=== PATIENT | female | born 1965 | race Caucasian/White ===

== ENCOUNTER 2017-10-30 11:00 | Emergency (ER) | payer MEDICAID ==
[~2017-10-30] VITALS: Ht 175.3 cm; Wt 95.0 kg
[2017-10-30 11:06] VITALS: BP 129/89
[2017-10-30] MEDS ORDERED: SERT100T5 PO (11:18)
[2017-10-30] MEDS ORDERED: CLON2TAB16 PO (11:18)
== END 2017-10-30 12:58 | disposition home or self-care (01) ==
LOC: ED 12:30
DX: R56.9 Unspecified convulsions (principal); F13.239 Sedative, hypnotic or anxiolytic dependence with withdrawal, unspecified; F31.9 Bipolar disorder, unspecified; F41.9 Anxiety disorder, unspecified
CPT/HCPCS: 70450; 82962; 93005; 99284

== ENCOUNTER 2018-08-04 08:32 | Emergency (ER) | payer MEDICAID, OTHER ==
[~2018-08-04] VITALS: Ht 172.7 cm; Wt 103.3 kg
[~2018-08-04 08:32] MED LIST: CLON2TAB16 PO; SERT100T5 PO
[2018-08-04] MEDS ORDERED: SODIUM CHLORIDE 0.9% 1,000ML IVBOLUS ONE (09:00)
[2018-08-04] MEDS ORDERED: KETOROLAC 30 MG/1 ML IVPush ONE (09:00)
[2018-08-04] MEDS ORDERED: DEXAMETHASONE 4 MG/ML, 1ML IV ONE (09:00)
[2018-08-04] MEDS ORDERED: SODIUM CHLORIDE FLUSH 10ML SYR IVF ONE (09:00)
[2018-08-04] MEDS ORDERED: KETOROLAC 30 MG/1 ML ONE (09:18)
[2018-08-04] MEDS ORDERED: DEXAMETHASONE 4 MG/ML, 5ML ONE (09:18)
[2018-08-04 09:44] LABS: BASOPHILS # (AUTO) 0.04 x10^3/uL (0-0.1); BASOPHILS % (AUTO) 1 % (0-1); EOSINOPHILS # (AUTO) 0.05 x10^3/uL (0-0.4); EOSINOPHILS % (AUTO) 1 % (1-7); LYMPHOCYTES # (AUTO) 1.97 x10^3/uL (1-3.4); LYMPHOCYTES % (AUTO) 21 % (22-44); MD NO; MEAN CORPUSCULAR HEMOGLOBIN 30.5 pg (27.0-34.8); MEAN CORPUSCULAR HGB CONC 34.2 g/dL (32.4-35.8); MEAN CORPUSCULAR VOLUME 89.1 fL (80-100); MEAN PLATELET VOLUME 8.1 fL (7.4-10.4); MONOCYTES # (AUTO) 0.26 x10^3/uL (0.2-0.8); MONOCYTES % (AUTO) 3 % (2-9); NEUTROPHILS # (AUTO) 6.95 x10^3/uL (1.8-6.8); NEUTROPHILS % (AUTO) 75 % (42-75); PLATELET COUNT 222 x10^3/uL (130-400); RED BLOOD COUNT 4.68 x10^6/uL (3.82-5.3); RED CELL DISTRIBUTION WIDTH 14.2 % (9.6-15.2)
[2018-08-04 09:53] LABS: ALBUMIN 3.8 g/dL (3.4-5.0); ANION GAP 7 mmol/L (5-15); CHLORIDE 110 mmol/L (98-107); CREATININE 0.81 mg/dL (0.55-1.02)
[2018-08-04] MEDS ORDERED: OMNIPAQUE 350 MG/ML, 100ML BOTTLE ONE (10:20)
[2018-08-04 10:30] VITALS: BP 108/75
== END 2018-08-04 11:41 | disposition home or self-care (01) ==
LOC: ED 10:16
DX: J32.0 Chronic maxillary sinusitis (principal); K08.89 Other specified disorders of teeth and supporting structures; K52.89 Other specified noninfective gastroenteritis and colitis; F31.9 Bipolar disorder, unspecified; F41.1 Generalized anxiety disorder
CPT/HCPCS: 36415; 70491; 80048; 82040; 85025; 87081; 87880; 96361; 96374; 96375; 99285; J1100; J1885; J7030; Q9967

== ENCOUNTER 2019-01-09 15:07 | Emergency (ER) | payer MEDICAID ==
[~2019-01-09] VITALS: Ht 177.8 cm; Wt 99.1 kg
[~2019-01-09 15:07] MED LIST changes: +SERT100T32 PO; -SERT100T5 PO
[2019-01-09] MEDS ORDERED: GABA300C10 PO (15:17)
[2019-01-09 15:33] LABS: BASOPHILS # (AUTO) 0.03 x10^3/uL (0-0.1); BASOPHILS % (AUTO) 0 % (0-1); EOSINOPHILS % (AUTO) 1 % (1-7); LYMPHOCYTES # (AUTO) 3.12 x10^3/uL (1-3.4); LYMPHOCYTES % (AUTO) 37 % (22-44); MD NO; MEAN CORPUSCULAR HEMOGLOBIN 31.8 pg (27.0-34.8); MEAN CORPUSCULAR HGB CONC 34.3 g/dL (32.4-35.8); MEAN CORPUSCULAR VOLUME 92.8 fL (80-100); MEAN PLATELET VOLUME 7.9 fL (7.4-10.4); MONOCYTES # (AUTO) 0.41 x10^3/uL (0.2-0.8); MONOCYTES % (AUTO) 5 % (2-9); NEUTROPHILS # (AUTO) 4.81 x10^3/uL (1.8-6.8); NEUTROPHILS % (AUTO) 57 % (42-75); PLATELET COUNT 232 x10^3/uL (130-400); RED CELL DISTRIBUTION WIDTH 13.3 % (9.6-15.2)
[2019-01-09 15:44] LABS: ALBUMIN 4.4 g/dL (3.4-5.0); ANION GAP 6 mmol/L (5-15); CALCIUM 8.9 mg/dL (8.5-10.1); CHLORIDE 108 mmol/L (98-107); CREATININE 0.74 mg/dL (0.55-1.02)
--- NOTE | 2019-01-09 16:51 | NUR ---
Discharge instructions discussed with patient, including when to return to emergency department. Prescription provided with instruction for use, patient instructed not to drive home, not to drive while taking klonipin, patient verbalizes understanding. Patient ambulates with steady gait to discharge desk in no acute distress.
[2019-01-09 16:52] VITALS: BP 127/60
== END 2019-01-09 16:54 | disposition home or self-care (01) ==
LOC: ED 16:05
DX: F41.1 Generalized anxiety disorder (principal); F13.239 Sedative, hypnotic or anxiolytic dependence with withdrawal, unspecified; F17.210 Nicotine dependence, cigarettes, uncomplicated; I10 Essential (primary) hypertension
CPT/HCPCS: 36415; 80048; 82040; 85025; 93005; 99284

== ENCOUNTER 2019-02-17 12:39 | Emergency (ER) | payer MEDICAID ==
[~2019-02-17] VITALS: Ht 175.3 cm; Wt 101.4 kg
[~2019-02-17 12:39] MED LIST changes: +GABA300C10 PO
[2019-02-17 12:53] VITALS: BP 133/93
[2019-02-17] MEDS ORDERED: LORazepam 1MG TABLET ONE (13:15)
[2019-02-17] MEDS ORDERED: LORazepam 1MG TABLET PO ONE (13:30)
--- NOTE | 2019-02-17 14:02 | NUR ---
Patient/Caregiver given discharge instructions and they have confirmed that they understand the instructions. Patient ambulatory with steady gait.
== END 2019-02-17 14:14 | disposition home or self-care (01) ==
LOC: ED 14:00
DX: F41.1 Generalized anxiety disorder (principal); Z76.0 Encounter for issue of repeat prescription; I10 Essential (primary) hypertension; F31.9 Bipolar disorder, unspecified
CPT/HCPCS: 99283

== ENCOUNTER 2019-02-19 15:47 | Emergency (ER) | payer MEDICAID ==
[~2019-02-19] VITALS: Ht 175.3 cm; Wt 99.6 kg
[2019-02-19 16:29] LABS: BASOPHILS # (AUTO) 0.08 x10^3/uL (0-0.1); BASOPHILS % (AUTO) 1 % (0-1); EOSINOPHILS # (AUTO) 0.03 x10^3/uL (0-0.4); EOSINOPHILS % (AUTO) 0 % (1-7); LYMPHOCYTES # (AUTO) 2.29 x10^3/uL (1-3.4); LYMPHOCYTES % (AUTO) 20 % (22-44); MD NO; MEAN CORPUSCULAR HEMOGLOBIN 30.7 pg (27.0-34.8); MEAN CORPUSCULAR HGB CONC 33.4 g/dL (32.4-35.8); MEAN CORPUSCULAR VOLUME 91.9 fL (80-100); MEAN PLATELET VOLUME 7.8 fL (7.4-10.4); MONOCYTES # (AUTO) 0.57 x10^3/uL (0.2-0.8); MONOCYTES % (AUTO) 5 % (2-9); NEUTROPHILS # (AUTO) 8.62 x10^3/uL (1.8-6.8); NEUTROPHILS % (AUTO) 74 % (42-75); PLATELET COUNT 239 x10^3/uL (130-400); RED BLOOD COUNT 4.78 x10^6/uL (3.82-5.3)
[2019-02-19 16:36] LABS: ANION GAP 9 mmol/L (5-15); CALCIUM 9.5 mg/dL (8.5-10.1); CHLORIDE 108 mmol/L (98-107); CREATININE 0.77 mg/dL (0.55-1.02)
--- NOTE | 2019-02-19 17:11 | NUR ---
PT TO ROOM FROM [facility] PRESENTS TO ED FOR CLONAZEPAM WITHDRAWL, TOOK 0.5 4X/DAY INSTEAD OF 3X/D, [place] OF [place], HAS NOT TAKEN ANY SINCE SATURDAY, WAS HERE SATURDAY AND HAD "SOMETING, NOT SURE WHAT IT WAS", "I FEEL LIKE I CANT BREATHE, HOT, STICKY, MY MUSCLES SEIZE UP AND THEY TWITCH".
[2019-02-19] MEDS ORDERED: CHLORDIAZEPOXIDE 10 MG CAPSULE ONE (17:38)
[2019-02-19] MEDS ORDERED: CHLORDIAZEPOXIDE 10 MG CAPSULE PO PRN (18:00)
--- NOTE | 2019-02-19 18:16 | NUR ---
PT UP FOR DC BUT DOES NOT WANT TO LEAVE, STATES SHE DOES NOT FEEL ANY BETTER THAN BEFORE AND "THAT MEDICATION DIDN'T DO ANYTING FOR ME"
--- NOTE | 2019-02-19 18:32 | NUR ---
PT REFUSING TO LEAVE, WOULD LIKE TO SPEAK TO MD AGAIN. MD NOTIFIED
[2019-02-19 19:00] VITALS: BP 139/87
== END 2019-02-19 19:02 | disposition home or self-care (01) ==
LOC: ED 17:54
DX: F13.239 Sedative, hypnotic or anxiolytic dependence with withdrawal, unspecified (principal); F13.20 Sedative, hypnotic or anxiolytic dependence, uncomplicated; F17.200 Nicotine dependence, unspecified, uncomplicated; I10 Essential (primary) hypertension
CPT/HCPCS: 36415; 71046; 80048; 85025; 93005; 99284